=== PATIENT | female | born 1990 | race Native Hawaiian/Other Pacific Islander ===

== ENCOUNTER 2017-06-11 21:50 | Emergency (ER) | payer OTHER ==
[~2017-06-11] VITALS: Ht 165.1 cm; Wt 137.4 kg
[2017-06-11 22:26] LABS: PLATELET COUNT 327 K/uL (152-353)
[2017-06-11 22:34] LABS: POTASSIUM 3.9 mmol/L (3.6-5.2); SODIUM 139 mmol/L (136-145)
[2017-06-12 01:09] VITALS: BP 119/61; TEMP 98.4
== END 2017-06-12 01:10 | disposition home or self-care (01) ==
LOC: ED 21:50
DX: N83.209 Unspecified ovarian cyst, unspecified side (principal); K80.10 Calculus of gallbladder with chronic cholecystitis without obstruction
CPT/HCPCS: 36415; 80053; 81025; 82150; 83690; 85027; 99283

== ENCOUNTER 2017-09-01 05:53 | Emergency (ER) | payer OTHER ==
[~2017-09-01] VITALS: Ht 165.1 cm; Wt 137.0 kg
[2017-09-01 07:02] LABS: PLATELET COUNT 273 K/uL (152-353)
[2017-09-01 07:16] LABS: POTASSIUM 4.4 mmol/L (3.6-5.2); SODIUM 138 mmol/L (136-145)
[2017-09-01 10:48] VITALS: BP 153/877; TEMP 97.1
== END 2017-09-01 10:56 | disposition home or self-care (01) ==
LOC: ED 05:53
DX: K80.10 Calculus of gallbladder with chronic cholecystitis without obstruction (principal); R11.2 Nausea with vomiting, unspecified; L08.9 Local infection of the skin and subcutaneous tissue, unspecified
CPT/HCPCS: 80053; 82150; 83690; 85027; 96374; 96375; 99284; J1885; J2270; J2405; Q9963

== ENCOUNTER 2018-02-25 13:34 | Emergency (ER) | payer OTHER ==
[~2018-02-25] VITALS: Ht 165.1 cm; Wt 136.1 kg
[2018-02-25 13:38] VITALS: TEMP 97.8
[2018-02-25 14:35] LABS: PLATELET COUNT 296 K/uL (152-353)
[2018-02-25 14:49] LABS: POTASSIUM 4.2 mmol/L (3.6-5.2)
[2018-02-25 19:59] VITALS: BP 155/72
== END 2018-02-25 20:00 | disposition home or self-care (01) ==
LOC: ED 13:34
PROVIDERS: Family Medicine
DX: N20.9 Urinary calculus, unspecified (principal)
CPT/HCPCS: 36415; 74022; 80053; 85027; 96365; 96374; 99284; J1885

== ENCOUNTER 2018-06-13 16:47 | Outpatient (CLI) | payer OTHER | END 2018-06-13 19:34 | disposition home or self-care (01) | LOC: RAD 16:47 | DX: I10 Essential (primary) hypertension (principal) | CPT/HCPCS: 84156 ==

== ENCOUNTER 2020-11-18 10:33 | Outpatient (CLI) | payer OTHER | END 2020-11-18 19:28 | disposition home or self-care (01) | LOC: US 10:33 | PROVIDERS: ATTEND Nurse Practitioner Primary Care | DX: R10.11 Right upper quadrant pain (principal) ==